=== PATIENT | female | born 1945 | race Caucasian/White ===

== ENCOUNTER → 2017-03-08 | Outpatient (CLI) | payer OTHER | LOC: RAD 01:53 | DX: Z12.31 Encounter for screening mammogram for malignant neoplasm of breast (principal) ==

== ENCOUNTER → 2018-03-12 | Outpatient (CLI) | payer OTHER | LOC: RAD 02:18 | DX: Z12.31 Encounter for screening mammogram for malignant neoplasm of breast (principal) ==